=== PATIENT | female | born 1990 | race Caucasian/White ===

== ENCOUNTER 2019-11-11 17:28 | Emergency (ER) | payer MEDICAID ==
[~2019-11-11] VITALS: Ht 160 cm; Wt 64.4 kg
--- NOTE | 2019-11-11 17:30 | NUR ---
[id number] HOME, FOUND PASSED OUT BY MOTHER. ETOH. BG 154 SHIPPER. ZOFRAN 4MG IV, 500ML NS GIVEN SHIPPER. TO ER BED 10, HOOKED TO MONITOR, CHANGED TO HOSP GOWN, WARM BLANKET PROVIDED, PATIENT AAO x 2 , BREATHING EVEN AND UNLABORED, NAD NOTED. AWAITING MD FLETCHER.
--- NOTE | 2019-11-11 17:32 | NUR ---
ABBEY CAMPA AT BEDSIDE
[2019-11-11 17:58] LABS: APPEARANCE,URINE Clear (CLEAR); BILIRUBIN,URINE Negative (NEGATIVE); BLOOD, URINE Negative Ery/uL (NEGATIVE); COLOR,URINE Yellow (YELLOW); KETONES,URINE Negative (NEGATIVE); LEUKOCYTE ESTERASE ,URINE Trace (NEGATIVE); NITRITE, URINE Negative (NEGATIVE); PROTEIN,URINE Negative (NEGATIVE); UGLUCOSE Negative (NEGATIVE); UROBILINOGEN,URINE 0.2 EU/dL (0.2)
[2019-11-11 18:07] LABS: BASOPHILS % (AUTO) 0.7 % (0.0-2.0); EOSINOPHILS % (AUTO) 0.8 % (0.0-6.0); HEMATOCRIT 37 % (33-45); HEMOGLOBIN 11.8 g/dL (11.5-14.8); LYMPHOCYTES # (AUTO) 1.9 /CMM (0.8-4.8); LYMPHOCYTES % (AUTO) 30.6 % (20.0-44.0); MEAN CORPUSCULAR HGB CONC 32 g/dl (31.0-36.0); MEAN CORPUSCULAR VOLUME 94 fL (82-100); MONOCYTES # (AUTO) 0.4 /CMM (0.1-1.30); MONOCYTES % (AUTO) 6.9 % (2.0-12.0); NEUTROPHILS # (AUTO) 3.9 /CMM (1.8-8.9); PLATELET COUNT (AUTO) 255 /CMM (150-450); RED BLOOD CELL COUNT(AUTO) 3.88 MIL/uL (4.0-5.2); WHITE BLOOD COUNT (AUTO) 6.3 K/uL (4.3-11.0)
[2019-11-11 18:13] LABS: BACTERIA,URINE Few /HPF (None Seen); RBC,URINE NONE SEEN /HPF (0-2); SQUAMOUS EPITHELIAL CELL,UR Few /HPF (None Seen)
[2019-11-11 18:22] LABS: SODIUM SERUM 145 mmol/L (136-145)
[2019-11-11 18:23] LABS: ALANINE AMINOTRANSFERASE 31 U/L (12-78); ALKALINE PHOSPHATASE 63 U/L (46-116); ASPARTATE AMINOTRANSFERASE 28 U/L (15-37); BILIRUBIN,DIRECT 0.1 mg/dL (0.0-0.2); BILIRUBIN,TOTAL 0.2 mg/dL (0.2-1.0); CALCIUM, SERUM 8.3 mg/dL (8.5-10.1); CARBON DIOXIDE 25 mmol/L (21-32); CHLORIDE 109 mmol/L (98-107); CREATININE 0.6 mg/dL (0.6-1.3); GLUCOSE 135 mg/dL (74-106); POTASSIUM 3.6 mmol/L (3.5-5.1); UREA NITROGEN, BLOOD 10 mg/dL (7-18)
[2019-11-11 18:24] LABS: ACETAMINOPHEN < 2 ug/ml (10-30); ALBUMIN 3.6 g/dL (3.4-5.0); SALICYLATE 0.4 mg/dL (2.8-20.0); TOTAL PROTEIN, SERUM 7.5 g/dL (6.4-8.2)
[2019-11-11 18:36] LABS: ALCOHOL, BLOOD 396 mg/dL (0-0)
--- NOTE | 2019-11-11 19:10 | NUR ---
MOTHER: KERI JIMENEZ [phone]
--- NOTE | 2019-11-11 19:33 | NUR ---
TOOK OVER PT CARE. PT ASLEEP. PLACED ON MONITOR AND PULSE OX. VSS.
--- NOTE | 2019-11-11 20:54 | NUR ---
IV removed. Catheter intact and site benign. Pressure and 4x4 applied to site. No bleeding noted.
--- NOTE | 2019-11-11 20:54 | NUR ---
PT STATED SHE IS NOT SI NOR HI. SHE DOES NOT WANT TO BE STAYING "OVER NIGHT."
[2019-11-12 00:07] VITALS: BP 129/78
--- NOTE | 2019-11-12 00:07 | NUR ---
PT CALLED [facility]. MALDONADOS. Patient discharged to home in stable condition. Written and verbal after care instructions given. Patient verbalizes understanding of instruction.
== END 2019-11-12 00:07 | disposition home or self-care (01) ==
LOC: ER 17:43
DX: F10.129 Alcohol abuse with intoxication, unspecified (principal); Y90.8 Blood alcohol level of 240 mg/100 ml or more
CPT/HCPCS: 36415; 80048; 80076; 80305; 80307; 80329; 81001; 84703; 85025; 99283; G0480; 81000-TC

== ENCOUNTER 2020-12-27 08:59 | Emergency (ER) | payer MEDICAID, OTHER ==
[~2020-12-27] VITALS: Ht 160 cm; Wt 63.5 kg
--- NOTE | 2020-12-27 09:09 | NUR ---
patient [id number] from home, alcohol withdrawal, nausea vomiting, zofran 4mg and 500 ns given on scene. On room air, breathing evenly and unlabored. Connected to the monitor and pulse ox. Kept comfortable, will continue to monitor accordingly.
[2020-12-27] MEDS ORDERED: LORAZEPAM INJ 2 MG/ML VIAL ONE ×3 (09:26→12:56)
[2020-12-27] MEDS ORDERED: ONDANSETRON HCL/PF 4 MG/2 ML VIAL ONE (09:26)
[2020-12-27] MEDS ORDERED: IV NS 0.9% 1,000 ML IV ONE (09:30)
[2020-12-27] MEDS ORDERED: ONDANSETRON HCL/PF - ER 4 MG/2 ML VIAL IV ONE (09:30)
[2020-12-27] MEDS ORDERED: LORAZEPAM INJ 2 MG/ML VIAL IV ONE ×3 (09:30→13:00)
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
[2020-12-27] MEDS ORDERED: CHLO25CA22 PO (12:40)
--- NOTE | 2020-12-27 15:19 | NUR ---
IV removed. Catheter intact and site benign. Pressure and 4x4 applied to site. No bleeding noted.Patient discharged to home in stable condition. Written and verbal after care instructions given. Patient verbalizes understanding of instruction.
[2020-12-27 15:20] VITALS: BP 118/76
== END 2020-12-27 15:20 | disposition home or self-care (01) ==
LOC: ER 09:00
DX: F10.239 Alcohol dependence with withdrawal, unspecified (principal); R11.2 Nausea with vomiting, unspecified; Z79.899 Other long term (current) drug therapy; Y90.9 Presence of alcohol in blood, level not specified
CPT/HCPCS: 96361; 96374; 96375; 96376; 99284; J2060 ×3; J2405 ×2; J7030

== ENCOUNTER 2023-09-23 20:40 | Emergency (ER) | payer OTHER ==
[~2023-09-23] VITALS: Ht 160 cm; Wt 72.6 kg
[~2023-09-23 20:40] MED LIST: CHLO25CA22 PO
[2023-09-23] MEDS ORDERED: METOCLOPRAMIDE HCL 10 MG/2 ML VIAL ONE (22:49)
[2023-09-23] MEDS ORDERED: FAMOTIDINE/PF INJ 20 MG/2 ML VIAL IV ONE (22:49)
[2023-09-23] MEDS: METOCLOPRAMIDE HCL 10 MG/2 ML VIAL IV ONE (22:59)
[2023-09-23] MEDS: IV NS 0.9% 1,000 ML BAG IV ONE ×2 (22:59→23:20)
[2023-09-23] MEDS: FAMOTIDINE/PF INJ 20 MG/2 ML VIAL IV ONE (22:59)
[2023-09-23 23:21] LABS: BASOPHILS # (AUTO) 0.1 K/uL (0.0-0.2); BASOPHILS % (AUTO) 0.6 % (0.0-2.0); HEMATOCRIT 37 % (33-45); HEMOGLOBIN 12.3 g/dL (11.5-14.8); LYMPHOCYTES # (AUTO) 1.2 K/uL (0.8-4.8); LYMPHOCYTES % (AUTO) 10.8 % (20.0-44.0); MEAN CORPUSCULAR HEMOGLOBIN 29 PG (26.0-33.0); MEAN CORPUSCULAR HGB CONC 33 g/dl (31.0-36.0); MEAN CORPUSCULAR VOLUME 87 fL (82-100); MONOCYTES # (AUTO) 0.7 K/uL (0.1-1.30); MONOCYTES % (AUTO) 5.9 % (2.0-12.0); NEUTROPHILS # (AUTO) 9.3 K/uL (1.8-8.9); NEUTROPHILS % (AUTO) 82.7 % (43.0-81.0); PLATELET COUNT (AUTO) 372 K/uL (150-450); RED BLOOD CELL COUNT(AUTO) 4.22 MIL/uL (4.0-5.2); RED CELL DISTRIBUTION WIDTH 18.7 % (11.5-15.0); WHITE BLOOD COUNT (AUTO) 11.3 K/uL (4.3-11.0)
[2023-09-23 23:37] LABS: ALBUMIN 4.1 g/dL (3.4-5.0); BILIRUBIN,DIRECT 0.2 mg/dL (0.0-0.2); BILIRUBIN,TOTAL 0.9 mg/dL (0.2-1.0); CREATININE 0.8 mg/dL (0.6-1.3); POTASSIUM 3.2 mmol/L (3.5-5.1); TOTAL PROTEIN, SERUM 8.8 g/dL (6.4-8.2)
[2023-09-24 00:36] LABS: APPEARANCE,URINE CLEAR (CLEAR); BILIRUBIN,URINE NEGATIVE (NEGATIVE); BLOOD, URINE TRACE-INTA Ery/uL (NEGATIVE); COLOR,URINE YELLOW (YELLOW); KETONES,URINE 1+ mg/dL (NEGATIVE); LEUKOCYTE ESTERASE ,URINE NEGATIVE (NEGATIVE); NITRITE, URINE NEGATIVE (NEGATIVE); PROTEIN,URINE 2+ mg/dl (NEGATIVE); UGLUCOSE NEGATIVE (NEGATIVE)
[2023-09-24 00:42] LABS: PREGNANCY TEST URINE QUAL NEGATIVE (NEGATIVE)
[2023-09-24] MEDS ORDERED: HALOPERIDOL LACTATE INJ 5 MG/ML VIAL ONE (00:42)
[2023-09-24 00:49] LABS: AMPHETAMINE, URINE NEGATIVE (NEGATIVE); BARBITURATE, URINE NEGATIVE (NEGATIVE); BENZODIAZEPINE, URINE NEGATIVE (NEGATIVE); CANNABINOID, URINE NEGATIVE (NEGATIVE); COCCAINE, URINE NEGATIVE (NEGATIVE); OPIATE, URINE NEGATIVE (NEGATIVE); PHENCYCLIDINE SCREEN,URINE NEGATIVE (NEGATIVE)
[2023-09-24] MEDS: HALOPERIDOL LACTATE INJ 5 MG/ML VIAL IM ONE (00:55)
[2023-09-24] MEDS ORDERED: POTASSIUM CHLORIDE 20 MEQ TAB.PRT.SR PO ONE (02:28)
[2023-09-24 02:30] VITALS: BP 135/98; TEMP 98.1; O2SAT 96
[2023-09-24] MEDS: POTASSIUM CHLORIDE 20 MEQ TAB.PRT.SR PO ONE (02:30)
== END 2023-09-24 02:30 | disposition home or self-care (01) ==
LOC: ER 20:43
DX: R11.2 Nausea with vomiting, unspecified (principal); E87.6 Hypokalemia; Z60.2 Problems related to living alone
CPT/HCPCS: 99285; 96374; 96361 ×2; 96375; 85025; 80048; 83690; 80076; 84703; 81003; 36415; 84702; 80320; 80307; 96372; 74176; J3490; J2765; J7030; J1630; G0480

== ENCOUNTER 2025-03-20 14:39 | Emergency (ER) | payer OTHER ==
[~2025-03-20] VITALS: Ht 170.2 cm; Wt 72.6 kg
[2025-03-20 14:57] VITALS: BP 105/71; TEMP 98.3; O2SAT 97
== END 2025-03-20 14:57 ==
LOC: ER 14:44
DX: F10.129 Alcohol abuse with intoxication, unspecified (principal); Y90.9 Presence of alcohol in blood, level not specified; Z65.8 Other specified problems related to psychosocial circumstances